=== PATIENT | female | born 1990 | race Caucasian/White ===

== ENCOUNTER 2022-07-04 05:55 | Inpatient (IN) ==
[2022-07-04] MEDS ORDERED: miSOPROStoL 200 MCG TABLET RECTAL PRN (06:13)
[2022-07-04] MEDS ORDERED: OXYTOCIN/LR 20 UNIT/1,000 ML BAG IV ONE ×2 (06:13→18:49)
[2022-07-04] MEDS ORDERED: CARBOPROST TROMETHAMINE 250 MCG/ML AMP IM PRN (06:13)
[2022-07-04] MEDS ORDERED: ONDANSETRON 4 MG/2 ML VIAL IV PRN ×2 (06:13→18:49)
[2022-07-04] MEDS ORDERED: TRANEXAMIC ACID 1,000 MG in SODIUM CHLORIDE 0.9% 100 ML IV PRN (06:13)
[2022-07-04] MEDS ORDERED: BUTORPHANOL 2 MG/ML VIAL IV PRN (06:13)
[2022-07-04] MEDS ORDERED: METHYLERGONOVINE 0.2 MG/1 ML AMP IM PRN (06:13)
[2022-07-04] MEDS ORDERED: OXYTOCIN/LR 20 UNIT/1,000 ML BAG IV SCH (06:30)
[2022-07-04] MEDS ORDERED: LACTATED RINGERS 1,000 ML IV SCH (06:30)
[2022-07-04 06:52] LABS: Basophils % 0.2 % (0.0-0.8); Eosinophils # 0.1 10*3/uL (0.0-0.87); Eosinophils % 0.8 % (0.00-10.9); Hematocrit 30.2 VOL% (35.7-47.0); Hemoglobin 9.4 GM/DL (12.0-16.0); Immature Granulocytes % 1.1 %; Immature Granulocytes Absolute 0.14 #; Lymphocytes # 1.8 10*3/uL (1.4-4.0); Lymphocytes % 14.2 % (21.3-54.2); Mean Corpuscular HGB Conc 31.1 GM/DL (32-36); Mean Corpuscular Volume 75.9 FL (87-102); Mean Platelet Volume 10.3 FL (9.6-12.0); Monocytes # 0.9 10*3/uL (0.11-0.8); Monocytes % 6.6 % (1.7-12.7); Neutrophils % 77.1 % (38.7-73.9); Platelet Count 225 T/CUMM (130-400); Red Blood Count 3.98 MC/CUMM (3.8-5.5); Red Cell Distribution Width 14.8 % (9.3-17.3)
[2022-07-04 07:13] LABS: Alanine Aminotransferase 13 U/L (13-56); Albumin 2.2 G/DL (3.4-5.0); Alkaline Phosphatase 183 U/L (45-117); Aspartate Amino Transferase 16 U/L (0-37); Bilirubin,Total < 0.39 MG/DL (0.20-1.00); Blood Urea Nitrogen 8 MG/DL (7-18); Calcium 8.9 MG/DL (8.5-10.1); Carbon Dioxide 20 MMOL/L (21-32); Chloride 112 MMOL/L (98-107); Glucose 144 MG/DL (74-106); Osmolality,Calculated 275.7 MOS/KG (273-304); Potassium 3.8 MMOL/L (3.5-5.1); Sodium 138 MMOL/L (136-145); Total Protein 5.7 G/DL (6.4-8.2)
[2022-07-04] MEDS ORDERED: MEPERIDINE 50 MG/1 ML VIAL IV PRN (08:27)
[2022-07-04] MEDS ORDERED: diphenhydrAMINE 50 MG/1 ML VIAL IV PRN ×2 (11:54)
[2022-07-04] MEDS ORDERED: FAMOTIDINE 20 MG/2 ML VIAL IV ONE (11:54)
[2022-07-04] MEDS ORDERED: hydrOXYzine HCL 25 MG/1 ML VIAL IM PRN (11:54)
[2022-07-04] MEDS ORDERED: NALOXONE 0.4 MG/ML VIAL IV PRN (11:54)
[2022-07-04] MEDS ORDERED: PROMETHAZINE 25 MG/1 ML VIAL IM ONE (11:54)
[2022-07-04] MEDS ORDERED: LACTATED RINGERS 1,000 ML IV ONE (11:54)
[2022-07-04] MEDS ORDERED: ePHEDrine 50 MG/ML VIAL IV PRN (11:54)
[2022-07-04] MEDS ORDERED: CITRIC ACID/SODIUM CITRATE 30 ML UDCUP PO ONE (11:54)
[2022-07-04] MEDS ORDERED: fentaNYL 2 MCG/ROPIV 0.2% EPID 100 ML EPIDURAL SCH (12:00)
[2022-07-04 14:19] LABS: Glucose,Urine (UA) Negative (Negative); Ketones,Urine Negative (Negative); Nitrite,Urine Negative (Negative); Protein,Urine Trace mg/dL (Negative); Urine Appearance Clear (Clear); Urine Color Yellow (Yellow)
[2022-07-04 14:20] LABS: Bilirubin,Urine Negative (Negative); Blood, Urine Negative (Negative); Urine Urobilinogen 0.2 eU/dL (<2.0)
[2022-07-04 14:23] LABS: Mucus,Urine Occasional /LPF (Occasional); RBC,Urine 1 /HPF (0-4); Squamous Epithelial Cell,Urine Occasional /HPF (0-10)
[2022-07-04] MEDS ORDERED: TRANEXAMIC ACID 1,000 MG/10 ML VIAL ONE (17:49)
[2022-07-04] MEDS ORDERED: miSOPROStoL 200 MCG TABLET ONE (17:49)
[2022-07-04] MEDS ORDERED: SODIUM CHLORIDE 0.9% 0 ML IV ONE (17:50)
[2022-07-04] MEDS ORDERED: CARBOPROST TROMETHAMINE 250 MCG/ML AMP IM ONE (17:50)
[2022-07-04] MEDS ORDERED: METHYLERGONOVINE 0.2 MG/1 ML AMP ONE (17:50)
[2022-07-04 18:22] LABS: Cord Venous Blood HCO3 22.1 MMOL/L; Cord Venous Blood PCO2 41.7 MMHG; Cord Venous Blood PO2 27.4
[2022-07-04] MEDS ORDERED: ACETAMINOPHEN 325 MG TABLET PO PRN (18:49)
[2022-07-04] MEDS ORDERED: BENZOCAINE 20%/MENTHOL 0.5% SPRAY 56 GM CAN TOP PRN (18:49)
[2022-07-04] MEDS ORDERED: RHO(D) IMMUNE GLOBULIN 300 MCG SYRINGE IM ONE (18:49)
[2022-07-04] MEDS ORDERED: LANOLIN 50% CREAM 0.3 OZ TUBE TOP PRN (18:49)
[2022-07-04] MEDS ORDERED: HYDROCORTISONE 2.5% RECTAL CREAM 30 GM TUBE TOP PRN (18:49)
[2022-07-04] MEDS ORDERED: WITCH HAZEL PADS 100/JAR TOP PRN (18:49)
[2022-07-04] MEDS ORDERED: DIPH/TET/ACEL PERT BOOSTER VACCINE 0.5 ML VIAL IM ONE (18:49)
[2022-07-04] MEDS ORDERED: MEASLES/MUMPS/RUBELLA VACCINE 0.5 ML VIAL SUBCUT ONE (18:49)
[2022-07-04] MEDS ORDERED: BISACODYL 10 MG SUPP RECTAL PRN (18:49)
[2022-07-04] MEDS ORDERED: ACETAMINOPHEN/CODEINE 300-30 MG TABLET PO PRN (18:52)
[2022-07-04] MEDS: IBUPROFEN 800 MG TABLET PO PRN (22:08)
[2022-07-04] MEDS: ACETAMINOPHEN/CODEINE 300-30 MG TABLET PO PRN (23:58)
[2022-07-05 05:25] LABS: Basophils % 0.2 % (0.0-0.8); Eosinophils # 0.1 10*3/uL (0.0-0.87); Eosinophils % 0.6 % (0.00-10.9); Hematocrit 32.4 VOL% (35.7-47.0); Immature Granulocytes % 0.7 %; Immature Granulocytes Absolute 0.13 #; Lymphocytes # 2.6 10*3/uL (1.4-4.0); Lymphocytes % 14.5 % (21.3-54.2); Mean Corpuscular HGB Conc 30.9 GM/DL (32-36); Mean Corpuscular Volume 76.2 FL (87-102); Mean Platelet Volume 10.8 FL (9.6-12.0); Monocytes # 1.1 10*3/uL (0.11-0.8); Monocytes % 6.1 % (1.7-12.7); Neutrophils % 77.9 % (38.7-73.9); Platelet Count 232 T/CUMM (130-400); Red Blood Count 4.25 MC/CUMM (3.8-5.5); Red Cell Distribution Width 15.1 % (9.3-17.3); White Blood Count 17.7 T/CUMM (4-12)
[2022-07-05] MEDS: MULTIVITAMIN (PRENATAL) TABLET PO SCH (08:11)
[2022-07-05] MEDS: DOCUSATE SODIUM 100 MG CAPSULE PO SCH ×2 (08:12→22:21)
[2022-07-05] MEDS: ACETAMINOPHEN/CODEINE 300-30 MG TABLET PO PRN ×3 (08:13→21:33)
[2022-07-05] MEDS: IBUPROFEN 800 MG TABLET PO PRN (12:17)
[2022-07-06] MEDS: IBUPROFEN 800 MG TABLET PO PRN ×2 (02:16→08:43)
[2022-07-06] MEDS: DOCUSATE SODIUM 100 MG CAPSULE PO SCH (08:39)
[2022-07-06] MEDS: MULTIVITAMIN (PRENATAL) TABLET PO SCH (08:39)
[2022-07-06 10:45] VITALS: BP 129/70
[2022-07-06] MEDS: ACETAMINOPHEN/CODEINE 300-30 MG TABLET PO PRN (11:49)
== END 2022-07-06 13:28 | disposition home or self-care (01) | DRG 807 ==
LOC: N.LD 05:55 → N.OB 22:15
PROVIDERS: ADMIT Obstetrics & Gynecology; ATTEND Obstetrics & Gynecology